=== PATIENT | male | born 1970 | race Caucasian/White ===

== ENCOUNTER → 2016-06-24 | Outpatient (CLI) | payer BC ==
[~2016-06-24] MED LIST: ALPR0.25 PO; BARIUM SUSPENSION 2.1% (REDI-CAT 2) 450 ML PO ONE; CATHETER FLUSH 10 ML SYR IV PRN; HYDR-3816 PO; IOHEXOL 350 MG/ML 150 ML (OMNIPAQUE 350) VIAL IV ONE; NF-ESOM40C PO; NS 100 ML (IVPB) BAG IV ONE; OMEP-10; PANT40TA PO; PROP1TAB77; SCR1T1 PO; ZLP10T PO
--- OUTSIDE RECORDS SUMMARY | 2016-06-24 10:25 | XMS REPORT | Continuity of Care Document ---
Author Author [facility] Organization [facility] Address Unknown Phone Unavailable Care Team Providers Care Laboratory Specialist Name Role Phone Ernie Hdz PCP [phone] Source Comments Some departments are not documenting in the electronic medical record. If you do not see the information that you expected, contact Release of Information in the Health Information Management department at [phone] for further assistance in locating additional records.[facility] Active Allergies and Adverse Reactions Not on File Current Medications Not on file Active Problems Not on file Social History Tobacco Use Types Packs/Day Years Used Date Never Assessed Plan of Care Health Maintenance Due Date Last Done Comments Physical (Comprehensive) 1977 Exam Pertussis Vaccine 1981 Tetanus Vaccine 1987 Influenza Vaccine 02/08/2016 Results from Last 3 Months Not on file
--- NOTE | 2016-06-24 12:58 | Diagnostic Imaging Report ---
CT scan of the neck, chest, and abdomen and pelvis performed with intravenous contrast. INDICATION: C62.12. Malignant neoplasm of the left testicle. COMPARISON: PET CT exam from 03/12/2016. 150 mL of Omnipaque 350 is administered intravenously. FINDINGS: CT neck: There is interval decrease in the size of the supraclavicular lymph node masses on the left side measuring up to 2.4 x 1.9 cm compared to 5.4 x 3.1 cm previously. The smaller more lateral mass is 1.8 cm in maximum dimension compares to 4.3 cm previously. More superiorly, the cervical chain demonstrates no lymphadenopathy. The submandibular and parotid glands appear symmetric. The mucosal pharyngeal space appears symmetric. The thyroid gland appears normal. The maxillary sinuses demonstrate mild mucosal thickening seen bilaterally. The osseous structures appear grossly unremarkable. Vascular enhancement in the carotid arteries and jugular veins appears grossly unremarkable. CT chest: There is minimal atelectasis and dependent regions of the lung bases. There are calcified granulomas in the right lower lobe. The heart size is normal. No pericardial or pleural effusion. The thoracic aorta is normal in caliber. The osseous structures appear grossly unremarkable. There is a tiny hiatal hernia. CT abdomen and pelvis: The liver, the gallbladder, the spleen, the pancreas, and the adrenal glands appear unremarkable. The PET CT from 03/12/2016 demonstrated large FDG avid retrocrural lymph nodes which are now significantly smaller in size measuring 1.2 x 0.8 cm on the right and up to 0.9 cm on the left side. These had soft tissue thickening and extension posteriorly around the spine which is diminished and the small nonspecific 0.7 cm left paraspinal nodule at T12 level remains. The abdominal aorta is normal in caliber. No para-aortic significantly enlarged lymph nodes noted. The kidneys have symmetric enhancement and contrast excretion. The appendix is normal. No significant free fluid or fluid collection in the abdomen or pelvis seen. There is mild thickening in the urinary bladder in diffuse fashion suggestive of cystitis. This is similar to 03/12/2016. The osseous structures demonstrate a 3 mm sclerotic focus in the left femoral head similar to the prior exam probably an incidental bone island. IMPRESSION: CT neck: There is significant decrease in the size of the left supraclavicular lymph nodes now up to 2.[address] chest: Small hiatal hernia. No suspicious mass. CT abdomen and pelvis: Significant decrease in the size of the retrocrural previously enlarged lymph nodes and also improved paraspinal soft tissue lesions reduced to a nonspecific 0.7 cm nodule at T12 level. Dictated by: Dictated on workstation # [id number]
== END ==
LOC: RAD 10:22
PROVIDERS: ATTEND Internal Medicine Hematology & Oncology
DX: C62.12 Malignant neoplasm of descended left testis (principal)
CPT/HCPCS: 70491; 71260; 74176

== ENCOUNTER → 2016-09-20 | Outpatient (CLI) | payer BC ==
[~2016-09-20] MED LIST changes: -BARIUM SUSPENSION 2.1% (REDI-CAT 2) 450 ML PO ONE; +IOHEXOL 350 MG/ML 100 ML (OMNIPAQUE 350) VIAL IV ONE; -IOHEXOL 350 MG/ML 150 ML (OMNIPAQUE 350) VIAL IV ONE
--- NOTE | 2016-09-20 12:20 | Diagnostic Imaging Report ---
CT NECK/CHEST/ABDOMEN/PELVIS W TECHNIQUE: Postcontrast axial imaging of the neck, chest, abdomen and pelvis was performed. Coronal reformats were created and submitted for interpretation. INDICATION: Testicular cancer surveillance. COMPARISON: CT neck, chest, abdomen and pelvis from 06/24/2016. CT NECK / FINDINGS: No new or enlarging cervical lymphadenopathy. The previously noted two adjacent left supraclavicular lymph nodes have slightly decreased in size. The larger and more medial lymph node now measures 2.1 x 1.8 cm (previously 2.4 x 1.9 cm when measured similarly). The more lateral and smaller lymph node measures 1.3 x 1.1 cm (previously 1.7 x 1.2 cm). Thyroid is normal. Salivary glands are symmetric. No evidence of mucosal-based mass in the nasopharynx, oropharynx, hypopharynx or larynx. Carotid and vertebral arteries are widely patent bilaterally. Parotid glands are normal. No abnormal mass effect in the visualized brain. Orbits are unremarkable. Paranasal sinuses and mastoid air cells are clear. No focal osseous lesion within the cervical spine. IMPRESSION: 1. No new or enlarging cervical lymphadenopathy. 2. The left supraclavicular lymph nodes continue to decrease in size, as detailed above. CT CHEST / FINDINGS: No axillary lymphadenopathy. No mediastinal, hilar or juxtaphrenic lymphadenopathy. Heart is normal in size without pericardial effusion. Normal caliber thoracic aorta. Stable small hiatus hernia. No pleural effusion or pneumothorax. No pulmonary mass or consolidation. No suspicious pulmonary nodules. Stable calcified right lower lobe pulmonary nodules compatible with remote granulomatous infection. No endoluminal lesion within the trachea or central bronchi. Normal regional skeleton in the thorax. IMPRESSION: Stable CT chest without evidence of metastatic disease. CT ABDOMEN AND PELVIS / FINDINGS: The previously seen retrocrural lymphadenopathy continues to decrease in size. At the level of the T12 vertebra, the left paraaortic lymph node measures 0.6 x 0.5 cm (previously 0.8 x 0.6 cm). The soft tissue nodule along the anterior aspect of the T12 vertebral body in the right paraaortic location is similar in size measuring 1.2 x 0.7 cm. No new or enlarging retrocrural, para-aortic, abdominal or pelvic lymphadenopathy. No free intraperitoneal air or fluid. The liver, gallbladder and spleen are normal. The pancreas, adrenals and kidneys are also normal. No bowel obstruction. Normal appendix. Urinary bladder is normal. Stable small fat-containing inguinal hernia on the right. Normal caliber abdominal aorta. No concerning osseous lesions in the abdomen or pelvis. IMPRESSION: Stable to slight decrease in size of retrocrural lymph nodes at the level of T12. No new or enlarging abdominal or pelvic lymphadenopathy to suggest disease progression. Report faxed to [phone] at 12:20 p.m. 09/20/2016/cb Dictated by: Dictated on workstation # [id number]
== END ==
LOC: RAD 08:00
PROVIDERS: ATTEND Internal Medicine Hematology & Oncology
DX: C62.12 Malignant neoplasm of descended left testis (principal)
CPT/HCPCS: 70491; 71260; 74176

== ENCOUNTER → 2017-03-21 | Outpatient (CLI) | payer BC ==
[~2017-03-21] MED LIST changes: +BARIUM SUSPENSION 2.1% (VANILLA SILQ) 450 ML PO ONE; -CATHETER FLUSH 10 ML SYR IV PRN
--- NOTE | 2017-03-21 10:47 | Diagnostic Imaging Report ---
CT NECK/CHEST/ABDOMEN/PELVIS W TECHNIQUE: Postcontrast imaging of the neck, chest, abdomen and pelvis was performed. Coronal reformats were created and submitted for interpretation. INDICATION: Testicular cancer. Surveillance imaging. COMPARISON: 09/20/16 FINDINGS: CT neck: Continued favorable response within the left supraclavicular lymph nodes as they have began decrease in size. The more medial and larger measures 2.0 x 1.4 cm (previously 2.1 x 1.8 cm) and the more lateral lymph node now measures 1.3 x 0.8 cm (previously 1.4 x 1.1 cm). No new or enlarging cervical lymph nodes. No mucosal based mass lesion in the pharynx or larynx. Chronic mucosal thickening of left maxillary sinus is unchanged. Mastoid air cells are clear. Salivary glands are symmetric. No concerning focal osseous lesions in the cervical spine. CT chest: No axillary lymphadenopathy. No mediastinal, hilar or juxtaphrenic lymphadenopathy. Heart is normal in size without pericardial effusion. Normal caliber thoracic aorta. No pleural effusion or pneumothorax. No endoluminal lesion in the trachea. No concerning pulmonary nodule, mass or consolidation. There are a few scattered calcified granulomas in the right lower lobe which are unchanged. No concerning focal osseous lesions in the thorax. CT abdomen and pelvis: The bilateral retrocrural lymph nodes are unchanged. The right measures 1.1 x 0.7 cm (previously 1.2 x 0.7 cm) and the left has maximal short axis dimension of 0.6 cm (previously 0.6 cm). No new or enlarging abdominal or pelvic lymph nodes. No inguinal lymphadenopathy. Unchanged diffuse hepatic steatosis. No focal hepatic lesion. The gallbladder, spleen, pancreas, adrenals, kidneys and urinary bladder are normal. No bowel obstruction. Appendix is normal. No pericolonic inflammatory changes. Prostate is not enlarged. Small fat-containing right inguinal hernia is unchanged. No concerning focal osseous lesions. IMPRESSION: CT neck: 1. Continued favorable response with progressive decreased size of left supraclavicular lymph nodes. CT chest: 1. No change in CT chest from prior exam. No intrathoracic metastatic disease. CT abdomen and pelvis: 1. No change since prior examination. Borderline enlarged retrocrural lymph nodes are unchanged. Dictated by: Dictated on workstation # [id number]
== END ==
LOC: RAD 08:30
PROVIDERS: ATTEND Internal Medicine Hematology & Oncology
DX: C62.12 Malignant neoplasm of descended left testis (principal); R59.0 Localized enlarged lymph nodes
CPT/HCPCS: 70491; 71260; 74176

== ENCOUNTER → 2017-09-17 | Outpatient (CLI) | payer BC ==
[~2017-09-17] MED LIST changes: +CATHETER FLUSH 10 ML SYR IV PRN; +HYDR-34 PO; -HYDR-3816 PO; -NS 100 ML (IVPB) BAG IV ONE; +NS 250 ML (IVPB) BAG IV ONE
--- NOTE | 2017-09-17 11:18 | Diagnostic Imaging Report ---
INDICATION: Testicular carcinoma. TECHNIQUE: Axial imaging through the neck, chest, abdomen and pelvis was performed after the administration of intravenous contrast. COMPARISON: Comparison is made with prior CT from 03/21/2017. FINDINGS: CT neck: Previously noted lymph nodes in the left supraclavicular region again show continued decrease in size. The larger more medial node measures 2.0 x 0.8 cm compared with 2.1 x 1.5 cm. The more lateral and smaller lesion measures 1.2 x 0.8 cm compared with 1.3 x 0.9 cm on prior. No posterior cervical or jugulodigastric lymphadenopathy is seen. Submandibular glands are unremarkable and symmetric. No thyroid mass is seen. Posterior nasopharynx, oropharynx and larynx are unremarkable. IMPRESSION: Continued slight decrease in size of left supraclavicular lymph nodes when compared to examination from 03/21/2017. CT chest: No axillary, hilar or mediastinal lymphadenopathy is detected. No pericardial or pleural fluid is identified. No pulmonary infiltrates, nodules or masses are seen. IMPRESSION: Stable CT chest when compared with exam from 03/21/2017. No thoracic lymphadenopathy or evidence of pulmonary metastatic disease is identified. CT abdomen and pelvis: Generalized hepatic low density is seen consistent with hepatic steatosis. No discrete liver mass is identified. Gallbladder is unremarkable. The pancreas and spleen are unremarkable. No adrenal mass is identified. The kidneys are unremarkable. Aorta is calcified but non-aneurysmal. Retrocrural lymph nodes remain present and stable in size. Right retrocrural lymph node measures 1.1 x 0.7 cm. Left retrocrural node measures approximately 0.6 cm. No central retroperitoneal or mesenteric lymphadenopathy is seen. The small and large bowel loops are normal in caliber. There is no ascites. Bladder and prostate are unremarkable. No definite inguinal or iliac lymphadenopathy is seen. IMPRESSION: Stable CT abdomen and pelvis when compared with prior exam from 03/21/2017. Previously noted retrocrural lymph nodes are stable. No new lymphadenopathy is detected. Dictated by: Dictated on workstation # [id number]
== END ==
LOC: RAD 09:47
PROVIDERS: ATTEND Internal Medicine Hematology & Oncology
DX: C62.12 Malignant neoplasm of descended left testis (principal)
CPT/HCPCS: 70491; 71260; 74176

== ENCOUNTER → 2018-03-18 | Outpatient (CLI) | payer BC ==
[~2018-03-18] MED LIST changes: -CATHETER FLUSH 10 ML SYR IV PRN
--- NOTE | 2018-03-18 11:24 | Diagnostic Imaging Report ---
INDICATION: Testicular carcinoma. Comparison made with prior examination 09/17/2017. TECHNIQUE: Multiple contiguous axial images were obtained through the neck, chest, abdomen and pelvis after the uneventful bolus administration of intravenous contrast. Sagittal and coronal reformations were than performed. FINDINGS: There is a 1.9 cm left supraclavicular lymph node. This is stable compared to prior examination at which time it measured 2 cm. No other pathologically enlarged adenopathy in the neck is appreciated. Visualized intracranial structures are unremarkable. Sinuses and mastoid air cells are clear. The nasopharyngeal, oropharyngeal and hypopharyngeal tissues are symmetric and without mass effect. The parotid, submandibular and thyroid glands are normal in appearance. There are no pulmonary nodules, masses or infiltrates. There is no pleural or pericardial effusion. There is no pneumothorax. There is no pathologically enlarged adenopathy in the chest. Thoracic aorta is normal in caliber. The liver is normal in size without focal lesions. Gallbladder is unremarkable. There is no biliary ductal dilatation. Spleen is normal. The pancreas, adrenal glands and kidneys are unremarkable. Note is again made of some tiny retrocrural lymph nodes measuring less than a centimeter. There is no other central or retroperitoneal or mesenteric adenopathy. The appendix is normal. No ascites. There is no free air. There are no focal inflammatory changes. Bladder is normal. There is no pelvic mass or adenopathy. There are mild degenerative changes in the spine. IMPRESSION: Stable 1.9 cm left supraclavicular lymph node. There are also tiny retrocrural lymph nodes measuring less than a centimeter. No other acute abnormality in the neck, chest, abdomen or pelvis. Dictated by: Dictated on workstation # [id number]
== END ==
LOC: RAD 07:37
PROVIDERS: ATTEND Internal Medicine
DX: C62.12 Malignant neoplasm of descended left testis (principal)
CPT/HCPCS: 70491; 71260; 74176

== ENCOUNTER → 2019-03-19 | Outpatient (CLI) | payer BC ==
[~2019-03-19] MED LIST changes: -BARIUM SUSPENSION 2.1% (VANILLA SILQ) 450 ML PO ONE; +CATHETER FLUSH 10 ML SYR IV PRN; +HOLD METFORMIN - RECEIVED CONTRAST 20 ML VIAL IV SCH; +NS 100 ML (IVPB) BAG IV ONE; -NS 250 ML (IVPB) BAG IV ONE
--- NOTE | 2019-03-19 10:28 | Diagnostic Imaging Report ---
INDICATION: Testicular carcinoma. TIME OF EXAM: 09:55 a.m. COMPARISON: Correlation is made with prior chest from 03/21/2016. FINDINGS: The heart size is normal. The pulmonary vascularity is unremarkable. The lungs are clear. No infiltrate, effusion or pneumothorax is detected. IMPRESSION: No acute cardiopulmonary process is detected. Dictated by: Dictated on workstation # [id number]
--- NOTE | 2019-03-19 10:28 | Diagnostic Imaging Report ---
INDICATION: Testicular neoplasm. Axial imaging through the neck, chest, abdomen and pelvis was performed after the administration of intravenous contrast. Correlation is made with prior CT from 03/18/2018. CT NECK: The visualized intracranial structures are unremarkable. Posterior nasopharynx and oropharynx are unremarkable. Hypopharynx and larynx are unremarkable. No thyroid mass is detected. Bilateral submandibular and parotid glands appear to be symmetric and unremarkable. No cervical lymphadenopathy is seen. Previously noted left supraclavicular lymph node measures 1.8 cm compared with approximately 2.0 cm on prior exam. No new lymphadenopathy is detected. IMPRESSION: Stable to slight decrease in size of left supraclavicular lymph node since the exam one year earlier. No new abnormality is detected. CT CHEST: No axillary lymphadenopathy is detected. No mediastinal or hilar lymphadenopathy is detected. No pericardial or pleural fluid is identified. The lungs are clear. No pulmonary nodules or masses are seen. There are no infiltrates. The central airways are patent. IMPRESSION: Unremarkable CT of the chest. No thoracic lymphadenopathy or evidence of pulmonary metastatic disease is identified. CT ABDOMEN AND PELVIS: The liver demonstrates mild generalized low density suggestive of hepatic steatosis. No discrete liver mass is identified. The gallbladder is unremarkable. No bile duct dilatation is seen. The pancreas and spleen are unremarkable. No adrenal mass is detected. Kidneys are unremarkable. Aorta is nonaneurysmal. No central retroperitoneal or mesenteric lymphadenopathy is detected. The small and large bowel loops are normal caliber. There is no ascites. No iliac or inguinal lymphadenopathy is detected. The bladder and prostate are unremarkable. Bony structures are nonacute. IMPRESSION: Stable CT abdomen and pelvis since the examination one year earlier. There is hepatic steatosis. No abdominal or pelvic lymphadenopathy or evidence of metastatic disease is identified. Dictated by: Dictated on workstation # [id number]
== END ==
LOC: RAD 09:13
PROVIDERS: ATTEND Internal Medicine Hematology & Oncology
DX: C62.12 Malignant neoplasm of descended left testis (principal)
CPT/HCPCS: 70491; 71046; 71260; 74176

== ENCOUNTER 2019-06-04 05:33 | Outpatient (CLI) | payer BC ==
[~2019-06-04] VITALS: Ht 182.9 cm; Wt 104.5 kg
[~2019-06-04 05:33] MED LIST changes: -CATHETER FLUSH 10 ML SYR IV PRN; -HOLD METFORMIN - RECEIVED CONTRAST 20 ML VIAL IV SCH; -IOHEXOL 350 MG/ML 100 ML (OMNIPAQUE 350) VIAL IV ONE; -NS 100 ML (IVPB) BAG IV ONE
[2019-06-04] MEDS ORDERED: TESTOSTERONE (13:27)
[2019-06-04] MEDS ORDERED: LACT1CAP72 PO (13:27)
== END 2019-06-04 13:29 | disposition home or self-care (01) ==
LOC: PREOP 05:33
PROVIDERS: ATTEND Surgery
DX: Z01.818 Encounter for other preprocedural examination (principal)

== ENCOUNTER 2019-06-11 11:44 | Day surgery (SDC) | payer BC ==
[2019-06-11] VITALS (11 sets, daily range): BP systolic 101–139; BP diastolic 59–86
[~2019-06-11] VITALS: Ht 182 cm; Wt 104.5 kg
[~2019-06-11 11:44] MED LIST changes: +LACT1CAP72 PO; +TESTOSTERONE
[2019-06-11] MEDS ORDERED: NS IV 500 ML 500 ML ONE (11:46)
[2019-06-11] MEDS ORDERED: NS IV 500 ML 500 ML IV PRN (11:53)
[2019-06-11] MEDS ORDERED: fentaNYL INJECTION 100 MCG/2 ML AMP IVP ONE (12:00)
[2019-06-11] MEDS ORDERED: LIDOCAINE JELLY 2% 6 ML SYRINGE MM PRN (12:00)
[2019-06-11] MEDS ORDERED: MIDAZOLAM 5 MG/5 ML (VERSED) VIAL IV PRN (12:00)
[2019-06-11] MEDS ORDERED: PROPOFOL INJECTION 0 ML IV ONE (12:22)
[2019-06-11] MEDS ORDERED: MIDAZOLAM 2 MG/2 ML (VERSED) VIAL ONE (12:23)
--- NOTE | 2019-06-11 12:23 | Progress Note-Pre Operative ---
Pre-Operative Progress Note H&P Reviewed The H&P was reviewed, patient examined and no changes noted. Date Seen by Provider: Jun 11, 2019 Time Seen by Provider: 12:00 Date H&P Reviewed: Jun 11, 2019 Time H&P Reviewed: 12:00 Pre-Operative Diagnosis: screening colonoscopy ROSA NOVAK MD Jun 11, 2019 12:23
--- NOTE | 2019-06-11 12:24 | Discharge Inst-Surgical ---
D/C Lap Instructions-KISHORE Follow Up Activity as tolerated High Fiber Diet 25g or more per day Avoid Alcohol, Caffeine, Spicy Chemult and Acid foods. Drink 64 fluid oz or more of fluids per day. Symptoms to Report: Fever over 101 degree F, Nausea/Vomiting If any problems/questions: Contact your physician or go to Emergency Room ROSA NOVAK MD Jun 11, 2019 12:24
[2019-06-11] MEDS ORDERED: ONDANSETRON 4 MG/2 ML (SDV) Z0FRAN IVP PRN (12:30)
[2019-06-11] MEDS ORDERED: HYDROcodone/APAP 5 MG/325 MG (LORTAB) TAB PO PRN (12:30)
[2019-06-11] MEDS ORDERED: ACETAMINOPHEN 325 MG TABLET PO PRN (12:30)
[2019-06-11] MEDS ORDERED: morphine INJ 10 MG/ML 1ML (SYR OR VIAL) IVP PRN ×2 (12:30)
[2019-06-11] MEDS ORDERED: LIDOCAINE JELLY 2% 6 ML SYRINGE ONE (12:44)
[2019-06-11] MEDS ORDERED: PROPOFOL INJECTION 50 ML IV ONE (13:07)
[2019-06-11] MEDS ORDERED: RT-ALBUTEROL SULF 2.5 MG/3 ML PRE-MIX VIAL ONE (13:44)
--- NOTE | 2019-06-11 13:48 | Progress Note-Post Operative ---
Post-Operative Progess Note Surgeon (s)/Acid Painter (s) Surgeon ROSA NOVAK MD Acid Painter: none Pre-Operative Diagnosis screening colonoscopy Post-Operative Diagnosis chronic stage 2 ext and int hemorrhoids. Procedure & Operative Findings Date of Procedure 06/11/19 Procedure Performed/Findings colonoscopy Anesthesia Type mac Estimated Blood Loss Estimated blood loss (mL): minimal Specimens/Packing Specimens Removed none ROSA NOVAK MD Jun 11, 2019 13:48
[2019-06-11] MEDS ORDERED: RT-ALBUTEROL SULF 2.5 MG/3 ML PRE-MIX VIAL INH ONE (14:00)
--- NOTE | 2019-06-11 14:47 | Anesthesia-General Post-Op ---
MAC Patient Condition Mental Status/LOC: Same as Preop Cardiovascular: Satisfactory Nausea/Vomiting: Absent Respiratory: Satisfactory Pain: Controlled Complications: Absent Post Op Complications Complications Pt vomited bile colored fluid during procedure. Refer to anesthesia record. Pt was suctioned and turned to side immediately. Post procedure sats were low 90's. Albuterol treatment given and well as incentive spirometer. Advised pt to use IS hourly at home and encouraged fluids. Advised to follow up with Dr. Murray if he develops any fever or return to ER for evaluation. Advised pt. aspiration pneumonia was a risk, but at this point it is unclear if pt aspirated. Breath sounds were clear, but pt c/o a "scratch throat". No other complaints reported. Follow Up Care/Instructions Patient Instructions None needed. Anesthesiology Discharge Order Discharge Order . GIA ROBLES CRNA Jun 11, 2019 14:47
--- NOTE | 2019-06-11 20:53 | OPERATIVE REPORT ---
DATE OF SERVICE: 06/11/2019 ATTENDING PRIMARY CARE PHYSICIAN: Dr. Hdz. PREOPERATIVE DIAGNOSIS: Screening colonoscopy with history of left testicular seminoma. POSTOPERATIVE DIAGNOSES: Chronic stage II external and internal hemorrhoids. Prostate gland was palpable and appeared normal. Remainder of the colon and rectum were normal. PROCEDURE: Colonoscopy. SURGEON: Rosa Novak MD. ANESTHESIA: Monitored anesthesia care. ESTIMATED BLOOD LOSS: Minimal. FINDINGS: Chronic stage II external and internal hemorrhoids. Prostate gland was palpable and appeared normal. Remainder of the colon and rectum were normal. DISPOSITION: The patient tolerated the procedure well. INDICATIONS: The patient is a 49-year-old female known to us. He has had a history of gastroesophageal reflux disease in the past and we had done an EGD on him on 07/28/2013, found to have a reflux esophagitis stage II-III as well as a small hiatal hernia 2 cm in size. This gentleman also does have a history of a left-sided seminoma and is status post left inguinal orchiectomy as well as radiation therapy. In 03/2016, he developed right flank pain and this was thought to be due to nephrolithiasis. A KUB was performed, which was unremarkable. A CT scan was performed on 03/05/2016, which did show some lower thoracic as well as upper abdominal retroperitoneal adenopathy. He was referred back to Oncology. A PET scan performed, which did show masses along the left supraclavicular region as well as left paraspinal region around the T11 through L1 levels. He underwent a CT-guided biopsy, which was inconclusive and did not supply sufficient tissue. He underwent another CT-guided biopsy, which came back positive for recurrent testicular cancer. He has had a Groshong placed and underwent 4 cycles of chemotherapy. He is in need of a screening colonoscopy. His last colonoscopy was approximately 15 years ago, which was normal. DESCRIPTION OF PROCEDURE: The patient was brought to the endoscopy suite, laid in the left lateral decubitus position. After adequate IV pain and sedative medications and monitored anesthesia care, due to his history of gastroesophageal reflux disease, testicular seminoma and sleep apnea, a digital rectal examination was performed, which revealed chronic stage II external and internal hemorrhoids, not actively edematous nor inflamed and no bleeding. Normal sphincter tone was felt and there were no palpable masses. Prostate gland was palpable and appeared normal. The endoscope was then intubated to the anus and rectum gently insufflated. The endoscope was then advanced to the valves of Turner of the rectum with no polyps or any neoplasms identified. We then proceeded through the sigmoid colon where no diverticulosis identified. The endoscope was then advanced to the remainder of the descending, transverse and ascending colon to the cecum. These segments were normal. There were no polyps or any neoplasms identified throughout the colon or rectum. Endoscope was then slowly withdrawn while taking a second look and suctioning of residual air with no additional findings. The patient tolerated the procedure well. We will recommend continued medical management with a high fiber diet with at least 30 grams of fiber daily as well as significant amounts of water to promote soft stools on a daily basis. At this time, he does not have any lesions identified of the colon. However, if he does become symptomatic, we will recommend a followup colonoscopy sooner. Also due to his personal history of cancer, he may want to proceed with a followup screening colonoscopies every 5 years as well even if asymptomatic. Job ID: [id number] DocumentID: [id number] Dictated Date: 06/11/2019 13:24:22 Director Strategic Planning Date: 06/11/2019 20:52:34 Dictated By: ROSA NOVAK MD
[2019-06-12] MEDS ORDERED: AMOX-358 PO ×2 (11:29)
== END 2019-06-11 15:10 | disposition home or self-care (01) ==
LOC: ENDO 11:44
PROVIDERS: ATTEND Surgery
DX: Z12.11 Encounter for screening for malignant neoplasm of colon (principal); K64.4 Residual hemorrhoidal skin tags; K64.1 Second degree hemorrhoids; K21.9 Gastro-esophageal reflux disease without esophagitis; E78.5 Hyperlipidemia, unspecified; G47.33 Obstructive sleep apnea (adult) (pediatric); F41.9 Anxiety disorder, unspecified; E78.00 Pure hypercholesterolemia, unspecified; Z90.79 Acquired absence of other genital organ(s); Z79.891 Long term (current) use of opiate analgesic; Z90.89 Acquired absence of other organs; Z79.899 Other long term (current) drug therapy; Z92.21 Personal history of antineoplastic chemotherapy; Z80.9 Family history of malignant neoplasm, unspecified; Z83.3 Family history of diabetes mellitus
CPT/HCPCS: 94640; 94664

== ENCOUNTER 2019-06-11 16:56 | Observation (INO) | payer BC ==
[~2019-06-11] VITALS: Ht 182.9 cm; Wt 101.0 kg
[2019-06-11 17:08] VITALS: BP 112/66
[2019-06-11] MEDS ORDERED: ACETAMINOPHEN 500 MG TAB (TYLENOL) PO PRN (17:15)
[2019-06-11] MEDS ORDERED: HYDROcodone/APAP 7.5 MG/325 MG (LORTAB, LORCET PLUS) TABLET PO PRN (17:15)
[2019-06-11] MEDS ORDERED: KETOROLAC 15 MG/ML VIAL IVP NR (17:30)
[2019-06-11] MEDS ORDERED: ACETAMINOPHEN 500 MG TAB (TYLENOL) PO NR (17:30)
[2019-06-11] MEDS: LACTATED RINGERS 1,000 ML IV SCH (17:51)
--- NOTE | 2019-06-11 17:56 | Diagnostic Imaging Report ---
INDICATION: Aspiration. Upright portable AP view of the chest is obtained with comparison made to study of 03/19/2019. FINDINGS: Overall heart size and pulmonary vascularity are within normal limits. There is mild increased density in the basilar regions, which may be due to mild edema and/or pneumonitis. No lobar consolidation or significant pleural fluid is seen. IMPRESSION: Basilar atelectasis versus edema and/or pneumonitis. Follow-up study would be of use. Dictated by: Dictated on workstation # [id number]
[2019-06-11 18:03] LABS: BASOPHILS % (AUTO) 0 % (0-10); EOSINOPHILS % (AUTO) 0 % (0-10); HEMATOCRIT 44 % (40-54); HEMOGLOBIN 15.1 G/DL (13.3-17.7); LYMPHOCYTES # (AUTO) 0.3 X 10^3 (1.0-4.0); LYMPHOCYTES % (AUTO) 8 % (12-44); MEAN CORPUSCULAR HEMOGLOBIN 32 PG (25-34); MEAN CORPUSCULAR HGB CONC 34 G/DL (32-36); MEAN CORPUSCULAR VOLUME 93 FL (80-99); MEAN PLATELET VOLUME 8.8 FL (7.4-10.4); MONOCYTES # (AUTO) 0.1 X 10^3 (0.0-1.0); MONOCYTES % (AUTO) 2 % (0-12); NEUTROPHILS # (AUTO) 3.8 X 10^3 (1.8-7.8); NEUTROPHILS % (AUTO) 90 % (42-75); PLATELET COUNT 194 10^3/uL (130-400); RED CELL DISTRIBUTION WIDTH 14.1 % (10.0-14.5); WHITE BLOOD COUNT 4.3 10^3/uL (4.3-11.0)
[2019-06-11] MEDS ORDERED: morphine INJ 4 MG/ML 1 ML (VIAL/SYRINGE) IVP PRN (18:15)
[2019-06-11 18:23] LABS: CALCIUM 9.2 MG/DL (8.5-10.1); CREATININE SERUM 1.27 MG/DL (0.60-1.30); POTASSIUM 4.4 MMOL/L (3.6-5.0)
--- NOTE | 2019-06-11 18:38 | HISTORY AND PHYSICAL ---
DATE OF SERVICE: ATTENDING PRIMARY CARE PHYSICIAN: Dr. Hdz. HISTORY OF PRESENT ILLNESS: The patient is a 49-year-old male known to us. He has a history of a left seminoma and status post left inguinal orchiectomy in 2008. He also does have a history of gastroesophageal reflux disease and peptic ulcer disease and we had done an EGD on him on 07/28/2013, found to have a reflux esophagitis between stage II and III and a small hiatal hernia 2 cm in size. On 03/15/2016, he developed right flank pain and underwent further evaluation. A CT scan was performed, which did show lower thoracic as well as upper abdominal retroperitoneal adenopathy, which was biopsied and found to be consistent with a recurrence of a seminoma. He then underwent chemotherapy and has been in remission since that time. He was seen in the office. He was seen in the office for screening colonoscopy. His last colonoscopy was approximately 15 years ago. He does not report any major issues with diarrhea nor constipation as well as no red blood per rectum nor any dark tarry stools. He also does not report any family history of colon cancer. He underwent a colonoscopy today and during the process, under a MAC anesthesia he did have significant emesis and potential aspiration pneumonitis. The patient was treated post-procedure with incentive spirometry as well as breathing treatments and had done better; however, once returning home, he did develop chills consistent with an aspiration pneumonitis. PAST MEDICAL HISTORY: Left seminoma, borderline hypercholesterolemia, gastroesophageal reflux disease, sleep apnea, anxiety, metastatic left seminoma. PAST SURGICAL HISTORY: Left inguinal orchiectomy in 2010, tonsillectomy in 1988, Groshong catheter placement in 03/2016. ALLERGIES: No known drug allergies. MEDICATIONS: Nexium daily. Testosterone. Probiotic daily. SOCIAL HISTORY: Previously smoked 4 pack years, quit in 1999. Social alcohol. FAMILY HISTORY: Maternal grandmother, diabetes. Maternal grandfather, some form of cancer. VITAL SIGNS: Temperature 39.7, blood pressure 112/66, pulse , respirations 22, pulse ox 91% on room air. REVIEW OF SYSTEMS: Well-nourished male currently in no acute distress. He is not experiencing any shortness of breath or difficulty breathing. No chest pain, palpitations, diaphoresis. He is having some cough as well as a mild chest discomfort. No significant sputum production. No nausea, vomiting, no diarrhea or constipation. He was having significant chills at home. No significant weight loss. PHYSICAL EXAMINATION: CHEST: Few scattered rales bilaterally. HEART: Regular, no murmurs. EXTREMITIES: No lower extremity edema, negative Homans sign. HEENT: No scleral icterus. NECK: No cervical lymphadenopathy. ABDOMEN: Soft, nontender, nondistended. SKIN: Warm, dry. LABORATORY DATA: WBC 4.3, hemoglobin 15.1, hematocrit 44, platelets 194. A chest x-ray did show basilar atelectasis versus edema and/or pneumonitis consistent with an aspiration pneumonitis. ASSESSMENT AND PLAN: A 49-year-old male with aspiration pneumonitis during colonoscopy today. We will admit him, start him on IV fluids as well as antipyretics and also start him on Rocephin 1 gram q.12 hours. We will also proceed with albuterol breathing treatments and incentive spirometry. We will get a repeat set of labs tomorrow as well as a repeat chest x-ray and if he is afebrile and feels better, we will then discharge him home. Job ID: [id number] DocumentID: [id number] Dictated Date: 06/11/2019 18:14:22 Technical Spec Date: 06/11/2019 18:37:19 Dictated By: ROSA NOVAK MD
[2019-06-11 18:48] LABS: BAND NEUTROPHILS 3 %; LYMPHOCYTES % (MANUAL) 5 %; MONOCYTES % (MANUAL) 3 %; NEUTROPHILS % (MANUAL) 89 %; RBC MORPH NORMAL
[2019-06-11] MEDS: cefTRIAXone FOR IV USE 1,000 MG in WATER (STERILE) FOR INJECTION 10 ML IV SCH (18:55)
[2019-06-11 21:47] VITALS: BP 100/62
[2019-06-11] MEDS ORDERED: RT-ALBUTEROL SULF 2.5 MG/3 ML PRE-MIX VIAL INH SCH (22:00)
[2019-06-12 00:23] VITALS: BP 94/59
[2019-06-12] MEDS: LACTATED RINGERS 1,000 ML IV SCH ×2 (00:55→07:16)
[2019-06-12 04:24] VITALS: BP 115/72
[2019-06-12] MEDS: cefTRIAXone FOR IV USE 1,000 MG in WATER (STERILE) FOR INJECTION 10 ML IV SCH (06:28)
[2019-06-12 06:59] LABS: BASOPHILS % (AUTO) 0 % (0-10); EOSINOPHILS % (AUTO) 0 % (0-10); HEMATOCRIT 40 % (40-54); HEMOGLOBIN 13.4 G/DL (13.3-17.7); LYMPHOCYTES # (AUTO) 0.8 X 10^3 (1.0-4.0); LYMPHOCYTES % (AUTO) 8 % (12-44); MEAN CORPUSCULAR HEMOGLOBIN 31 PG (25-34); MEAN CORPUSCULAR HGB CONC 34 G/DL (32-36); MEAN CORPUSCULAR VOLUME 93 FL (80-99); MEAN PLATELET VOLUME 9.7 FL (7.4-10.4); MONOCYTES # (AUTO) 0.8 X 10^3 (0.0-1.0); MONOCYTES % (AUTO) 7 % (0-12); NEUTROPHILS # (AUTO) 8.9 X 10^3 (1.8-7.8); NEUTROPHILS % (AUTO) 85 % (42-75); PLATELET COUNT 203 10^3/uL (130-400); WHITE BLOOD COUNT 10.5 10^3/uL (4.3-11.0)
[2019-06-12 07:39] VITALS: BP 111/67
[2019-06-12 11:13] VITALS: BP 105/66
--- NOTE | 2019-06-12 11:28 | Progress Note ---
Subjective Date Seen by a Provider: Jun 12, 2019 Time Seen by a Provider: 11:00 Subjective/Events-last exam doing well. no cough/sputum production. no fever/chills. tolerating diet. normal bowel fxn. Objective Exam Vital Signs Date Time Temp Pulse Resp B/P (MAP) Pulse Ox O2 Delivery O2 Flow Rate FiO2 06/12/19 08:00 94 Room Air 06/12/19 07:39 36.8 107 18 111/67 (82) 93 Room Air 06/12/19 04:24 37.8 112 18 115/72 (86) 95 Room Air 06/12/19 00:23 37.3 109 18 94/59 (71) 96 Room Air 06/11/19 21:47 37.6 116 20 100/62 (75) 94 Room Air 06/11/19 20:00 94 Room Air 06/11/19 19:20 38.4 06/11/19 19:20 38.4 06/11/19 19:19 38.4 06/11/19 17:08 39.7 122 22 112/66 91 Room Air I & O 06/12/19 07:00 Intake Total 800 ml Balance 800 ml Capillary Refill : Less Than 3 Seconds General Appearance: No Apparent Distress HEENT: PERRL/EOMI Neck: Full Range of Motion Respiratory: Lungs Clear, Normal Breath Sounds Cardiovascular: Regular Rate, Rhythm Gastrointestinal: normal bowel sounds, non tender, soft Extremity: Normal Capillary Refill Neurologic/Psychiatric: Alert, Oriented x3 Skin: Normal Color Lymphatic: No Adenopathy Results Lab Laboratory Tests 06/11/19 17:58: White Blood Count 4.3, Red Blood Count 4.74, Hemoglobin 15.1, Hematocrit 44, Mean Corpuscular Volume 93, Mean Corpuscular Hemoglobin 32, Mean Corpuscular Hem oglobin Concent 34, Red Cell Distribution Width 14.1, Platelet Count 194, Mean Platelet Volume 8.8, Neutrophils (%) (Auto) 90H, Lymphocytes (%) (Auto) 8L, Monocytes (%) (Auto) 2, Eosinophils (%) (Auto) 0, Basophils (%) (Auto) 0, Neutrophils # (Auto) 3.8, Lymphocytes # (Auto) 0.3L, Monocytes # (Auto) 0.1, Eosinophils # (Auto) 0.0, Basophils # (Auto) 0.0, Neutrophils % (Manual) 89, Lymphocytes % (Manual) 5, Monocytes % (Manual) 3, Band Neutrophils 3, Blood Morphology Comment NORMAL, Sodium Level 135, Potassium Level 4.4, Chloride Level 103, Carbon Dioxide Level 20L, Anion Gap 12, Blood Urea Nitrogen 12, Creatinine 1.27, Estimat Glomerular Filtration Rate 60, BUN/Creatinine Ratio 9, Glucose Level 89, Calcium Level 9.2 06/12/19 05:46: White Blood Count 10.5, Red Blood Count 4.27L, Hemoglobin 13.4, Hematocrit 40, Mean Corpuscular Volume 93, Mean Corpuscular Hemoglobin 31, Mean Corpuscular He moglobin Concent 34, Red Cell Distribution Width 14.0, Platelet Count 203, Mean Platelet Volume 9.7, Neutrophils (%) (Auto) 85H, Lymphocytes (%) (Auto) 8L, Monocytes (%) (Auto) 7, Eosinophils (%) (Auto) 0, Basophils (%) (Auto) 0, Neutrophils # (Auto) 8.9H, Lymphocytes # (Auto) 0.8L, Monocytes # (Auto) 0.8, Eosinophils # (Auto) 0.0, Basophils # (Auto) 0.0 Assessment/Plan Assessment/Plan Assess & Plan/Chief Complaint aspiration pneumonitis. doing much better. no respiratory issues or fever/chills. d/c home on augmentin for 5 days. Clinical Quality Measures DVT/VTE Risk/Contraindication: Risk Factor Score Per Nursin RFS Level Per Nursing on Admit: 1=Low/No VTE PPX ROSA NOVAK MD Jun 12, 2019 11:28
[2019-06-12] MEDS ORDERED: AMOX-358 PO ×2 (11:29)
--- NOTE | 2019-06-12 11:30 | Discharge Inst-Surgical ---
D/C Lap Instructions-KIDO New, Converted, or Re-Newed RX: RX on Chart Follow Up PRN Activity as tolerated High Fiber Diet 25g or more per day Avoid Alcohol, Caffeine, Spicy Terril and Acid foods. Drink 64 fluid oz or more of fluids per day. Symptoms to Report: Fever over 101 degree F, Nausea/Vomiting If any problems/questions: Contact your physician or go to Emergency Room ROSA NOVAK MD Jun 12, 2019 11:30
[2019-06-12 11:55] VITALS: BP 105/66
--- NOTE | 2019-06-12 12:10 | Diagnostic Imaging Report ---
INDICATION: Aspiration pneumonia. FINDINGS: Upright portable chest shows normal heart size and vascularity. There is partial clearing of the left lower lobe atelectasis and infiltrate. The right lung remains clear. There is no effusion. IMPRESSION: Improving chest compared to the 06/11/2019 study. Dictated by: Dictated on workstation # [id number]
== END 2019-06-12 11:55 | disposition home or self-care (01) ==
LOC: 4TH 17:00
PROVIDERS: ADMIT Surgery; ATTEND Surgery
DX: J69.0 Pneumonitis due to inhalation of food and vomit (principal); K21.0 Gastro-esophageal reflux disease with esophagitis; E78.00 Pure hypercholesterolemia, unspecified; G47.30 Sleep apnea, unspecified; F41.9 Anxiety disorder, unspecified; Z85.47 Personal history of malignant neoplasm of testis; Z90.79 Acquired absence of other genital organ(s); Z90.89 Acquired absence of other organs; Z87.891 Personal history of nicotine dependence
CPT/HCPCS: 36415; 71045; 80048; 85007; 85025; 85027; 99211; G0378

== ENCOUNTER → 2019-06-17 | Outpatient (CLI) | payer BC ==
[~2019-06-17] MED LIST changes: +AMOX-358 PO
--- NOTE | 2019-06-17 15:33 | Diagnostic Imaging Report ---
INDICATION: Pneumonia. TIME OF EXAM: 3:30 p.m. COMPARISON: Correlation is made with prior chest from 06/12/2019. FINDINGS: The heart size is normal. The pulmonary vascularity is unremarkable. The lungs are clear. No infiltrate, effusion or pneumothorax is detected. IMPRESSION: No acute cardiopulmonary process is detected. Dictated by: Dictated on workstation # [id number]
== END ==
LOC: RAD 15:14
PROVIDERS: ATTEND Nurse Practitioner Family
DX: J18.9 Pneumonia, unspecified organism (principal)
CPT/HCPCS: 71046

== ENCOUNTER → 2020-03-27 | Outpatient (CLI) | payer BC ==
[~2020-03-27] MED LIST changes: +HOLD METFORMIN - RECEIVED CONTRAST 20 ML VIAL IV SCH; +IOHEXOL 350 MG/ML 100 ML (OMNIPAQUE 350) VIAL IV ONE; +NS 100 ML (IVPB) BAG IV ONE
--- NOTE | 2020-03-27 09:23 | Diagnostic Imaging Report ---
EXAMINATION: CT Neck, Chest, Abdomen and Pelvis with intravenous contrast. TECHNIQUE: Multiple contiguous axial images were obtained through the neck, chest, abdomen and pelvis after the uneventful administration of intravenous contrast. All CT scans use one or more of the following dose optimizing techniques: automated exposure control, MA and/or KvP adjustment based on a patient size and exam type, or iterative reconstruction. HISTORY: Testicular cancer. COMPARISON: 03/19/2019 FINDINGS: Neck CT: There is some unchanged left supraclavicular lymph node measuring 11 mm in short axis. No other lymphadenopathy is seen in the neck. The muscles of the neck are normal. Vessels of the neck demonstrate normal course and caliber. Fascial planes are preserved and the deep spaces of the neck are normal. The visualized airway is widely patent. The base of the skull and the temporal bones are normal. Limited views of the brain including the cerebellum and brainstem are normal. The limited view of the [place] is unremarkable. The visualized portions of the orbits are normal. The spinal canal is normal in caliber. Intervertebral disk heights are normal. Neural foramina are normal. Chest CT: There is no edema or pneumonia. No pleural effusion. No pneumothorax. No suspicious nodules. There is no axillary or supraclavicular lymphadenopathy. There is no mediastinal lymphadenopathy. Heart size is normal. There are no coronary artery calcifications. No pericardial effusion. Aorta is normal in caliber. Abdomen and Pelvis CT: The liver is normal without focal lesion. There is no biliary ductal dilation. Gallbladder is normal. Pancreas is normal. Spleen is normal. Adrenal glands are normal. The kidneys are normal. There is no hydronephrosis. Urinary bladder is normal. Visualized bowel is normal in caliber without obstruction or inflammation. No free fluid or air. No abdominal or pelvic lymphadenopathy. Aorta is normal in caliber without aneurysm. There are no suspicious osseous lesions. IMPRESSION: 1. No metastatic disease seen in the neck, chest, abdomen or pelvis. Dictated by: Dictated on workstation # [id number]
== END ==
LOC: RAD 08:45
PROVIDERS: ATTEND Internal Medicine Hematology & Oncology
DX: Z85.47 Personal history of malignant neoplasm of testis (principal)
CPT/HCPCS: 70491; 71260; 74176